=== PATIENT | female | born 1945 | race Caucasian/White ===

== ENCOUNTER 2025-01-06 08:13 | Inpatient (IN) | payer MEDICARE ==
[~2025-01-06] VITALS: Ht 177.8 cm; Wt 94.8 kg
[2025-01-06] VITALS (7 sets, daily range): BP systolic 108–124; BP diastolic 37–87; PULSE 75–82; RESP 18–28; TEMP 97.5–98.8; O2SAT 95–98
[2025-01-06] MEDS: ALBUTEROL/IPRATROPIUM 3 ML NEB NEB ONE (08:59)
[2025-01-06 09:15] LABS: BASOPHILS % 0.3 % (0.0-1.0); EOSINOPHILS % 0.1 % (0.0-6.0); HEMATOCRIT 38.2 % (34.2-44.1); HEMOGLOBIN 11.9 g/dL (12.0-16.0); LYMPHOCYTES # (AUTO) 1.2 (1.0-3.2); LYMPHOCYTES % 12.9 % (18.0-39.1); MEAN CORPUSCULAR HEMOGLOBIN 25.4 pg (28-32); MEAN CORPUSCULAR HGB CONC 31.2 g/dL (31-35); MEAN CORPUSCULAR VOLUME 81.4 fL (81-99); MONOCYTES # (AUTO) 0.7 (0.2-0.8); NEUTROPHILS # (AUTO) 7.4 (2.1-6.9); NEUTROPHILS % 79.2 % (38.7-80.0); PLATELET COUNT 176 x10e3/uL (140-360); RED BLOOD COUNT 4.69 x10e6/uL (3.6-5.1); RED CELL DISTRIBUTION WIDTH 14.8 % (11.7-14.4); WHITE BLOOD COUNT 9.33 x10e3/uL (4.8-10.8)
[2025-01-06] MEDS: ACETAMINOPHEN 1000 MG/100 ML IV STA (09:15)
[2025-01-06] MEDS: SODIUM CHLORIDE 0.9% 1000ML 1,000 ML IV STA (09:15)
[2025-01-06] MEDS: METHYLPREDNISOLONE SOD SUCC 125 MG/2ML VIAL IV STA (09:15)
[2025-01-06 09:33] LABS: CORONAVIRUS COVID-19 AG NEGATIVE (NEGATIVE); INFLUENZA A AG POSITIVE (NEGATIVE); INFLUENZA B AG NEGATIVE (NEGATIVE)
[2025-01-06 09:51] LABS: B-TYPE NATRIURETIC PEPTIDE2 144.3 pg/mL (0-100)
[2025-01-06 09:55] LABS: INR 0.96; PROTHROMBIN TIME 13.4 seconds (11.9-14.5)
[2025-01-06 10:07] LABS: ALBUMIN 3.8 g/dL (3.5-5.0); ALBUMIN/GLOBULIN RATIO 0.9 (0.8-2.0); ANION GAP 18.5 mmol/L (8-16); BILIRUBIN,TOTAL 0.4 mg/dL (0.2-1.2); CALCIUM 10.1 mg/dL (8.4-10.2); CREATININE, SERUM 1.61 mg/dL (0.57-1.11); MAGNESIUM 1.6 MG/DL (1.3-2.1); POTASSIUM 4.5 mmol/L (3.5-5.1)
[2025-01-06 10:12] LABS: PARTIAL THROMBOPLASTIN TIME 23.1 seconds (23.8-35.5); TROPONIN I 0.018 ng/mL (0-0.300)
[2025-01-06] MEDS ORDERED: OSELTAMIVIR PHOSPHATE 75 MG CAP PO SCH (10:15)
[2025-01-06] MEDS: SODIUM CHLORIDE 0.9% 500ML 500 ML IV ONE (10:35)
[2025-01-06 11:12] LABS: CLARITY,URINE HAZY (CLEAR); COLOR,URINE YELLOW (YELLOW)
[2025-01-06 11:13] LABS: BACTERIA,URINE FEW /HPF; BILIRUBIN,URINE NEGATIVE (NEGATIVE); EPITHELIAL CELLS,URINE FEW /LPF; GLUCOSE, URINE NEGATIVE (NEGATIVE); KETONES,URINE TRACE (NEGATIVE); LEUKOCYTE ESTERASE ,URINE SMALL (NEGATIVE); MUCUS,URINE FEW; NITRITE,URINE NEGATIVE (NEGATIVE); PH,URINE 5.5 (5 - 7); PROTEIN,URINE DIPSTICK 2+ (NEGATIVE); RBC,URINE 21-50 /HPF (0-5); URINE UROBILINOGEN 0.2 mg/dL (0.2 - 1); WBC,URINE (MAN) >50 /HPF (0-5)
[2025-01-06] MEDS ORDERED: LEVALBUTEROL HCL SOLN NEBU 0.63 MG/3 ML NEB INH PRN (12:15)
[2025-01-06] MEDS ORDERED: GABAPENTIN600 MG PO (13:58)
[2025-01-06] MEDS ORDERED: CEFPODOXIME PR200 MG PO (13:58)
[2025-01-06] MEDS ORDERED: LEVOTHYROXINE75 MCG PO (13:58)
[2025-01-06] MEDS ORDERED: ATORVASTATIN CA10 MG PO (13:58)
[2025-01-06] MEDS ORDERED: LISINOPRIL2.5 MG PO (13:58)
[2025-01-06] MEDS ORDERED: DULOXETINE HCL20 MG PO (13:58)
[2025-01-06] MEDS ORDERED: TAMOXIFEN CITRA20 MG PO (13:58)
[2025-01-06] MEDS ORDERED: MELOXICAM15 MG PO (13:58)
[2025-01-06] MEDS ORDERED: CRANBERRY250 MG PO (14:04)
[2025-01-06] MEDS ORDERED: NEXIUM 24HR20 MG PO (14:04)
[2025-01-06] MEDS ORDERED: VITAMIN C500 MG PO (14:06)
[2025-01-06] MEDS ORDERED: SYMBICORT 80-10.2 GM INH (14:42)
[2025-01-06] MEDS: SODIUM CHLORIDE 0.9% 1000ML 1,000 ML IV SCH (15:07)
[2025-01-06] MEDS ORDERED: ONDANSETRON HCL 4 MG ORAL DISINTEGRATING TAB PO PRN (16:15)
[2025-01-06] MEDS ORDERED: MELATONIN 5 MG TABLET PO PRN (16:15)
[2025-01-06] MEDS ORDERED: FAMOTIDINE 20 MG TAB PO PRN ×2 (16:15)
[2025-01-06] MEDS: ALBUTEROL/IPRATROPIUM 3 ML NEB NEB SCH (19:35)
[2025-01-06] MEDS: OSELTAMIVIR PHOSPHATE 75 MG CAP PO ONE (20:38)
[2025-01-06] MEDS: ONDANSETRON HCL INJ 2MG/ML 2ML 2 MG/ML VIAL IV PRN (20:39)
[2025-01-07] VITALS (10 sets, daily range): BP systolic 103–117; BP diastolic 50–60; PULSE 74–92; RESP 16–22; TEMP 97.4–98.3; O2SAT 93–100
[2025-01-07] MEDS: LEVOTHYROXINE SODIUM 75 MCG TAB PO SCH (05:49)
[2025-01-07 06:26] LABS: BASOPHILS % 0.2 % (0.0-1.0); HEMOGLOBIN 9.7 g/dL (12.0-16.0); LYMPHOCYTES # (AUTO) 1.4 (1.0-3.2); LYMPHOCYTES % 23.9 % (18.0-39.1); MEAN CORPUSCULAR HEMOGLOBIN 25.2 pg (28-32); MEAN CORPUSCULAR HGB CONC 30.3 g/dL (31-35); MEAN CORPUSCULAR VOLUME 83.1 fL (81-99); MONOCYTES # (AUTO) 0.6 (0.2-0.8); MONOCYTES % 9.6 % (4.4-11.3); PLATELET COUNT 130 x10e3/uL (140-360); RED BLOOD COUNT 3.85 x10e6/uL (3.6-5.1); RED CELL DISTRIBUTION WIDTH 14.6 % (11.7-14.4); WHITE BLOOD COUNT 6.03 x10e3/uL (4.8-10.8)
[2025-01-07 07:01] LABS: ALBUMIN 2.8 g/dL (3.5-5.0); ALBUMIN/GLOBULIN RATIO 1.1 (0.8-2.0); ANION GAP 13.7 mmol/L (8-16); BILIRUBIN,TOTAL 0.2 mg/dL (0.2-1.2); CALCIUM 8.3 mg/dL (8.4-10.2); CHOL/HDL RATIO 2.6 (3.0-3.6); CREATININE, SERUM 1.15 mg/dL (0.57-1.11); POTASSIUM 3.7 mmol/L (3.5-5.1); TOTAL PROTEIN 5.4 g/dL (6.5-8.1)
[2025-01-07 07:08] LABS: TROPONIN I 0.005 ng/mL (0-0.300)
[2025-01-07] MEDS ORDERED: OSELTAMIVIR PHOSPHATE 75 MG CAP PO SCH (09:00)
[2025-01-07] MEDS: OSELTAMIVIR PHOSPHATE 30 MG CAPSULE PO SCH (09:11)
[2025-01-07] MEDS: SODIUM CHLORIDE 0.9% 1000ML 1,000 ML IV SCH (11:26)
[2025-01-07] MEDS ORDERED: PREDNISONE50 MG PO (12:52)
[2025-01-07] MEDS ORDERED: AZITHROMYCIN250 MG PO (12:52)
[2025-01-07] MEDS ORDERED: TAMIFLU6 MG/1 ML PO (12:54)
[2025-01-07] MEDS: ACETAMINOPHEN 325 MG TAB PO PRN (15:10)
[2025-01-07] MEDS: PROMETHAZINE 12.5MG/ NACL 0.9% 12.5 MG/50 ML BAG IV ONE (18:11)
[2025-01-07] MEDS: LISINOPRIL 2.5 MG TAB PO SCH (18:30)
[2025-01-07] MEDS: METHYLPREDNISOLONE SOD SUCC 125 MG/2ML VIAL IV SCH (21:13)
[2025-01-07] MEDS: BENZONATATE 100 MG CAP PO SCH (23:47)
[2025-01-08] VITALS (9 sets, daily range): BP systolic 105–132; BP diastolic 55–89; PULSE 71–86; RESP 19–22; TEMP 97.3–98.3; O2SAT 94–98
[2025-01-08 06:29] LABS: BASOPHILS % 0.2 % (0.0-1.0); HEMOGLOBIN 10.2 g/dL (12.0-16.0); LYMPHOCYTES # (AUTO) 0.7 (1.0-3.2); LYMPHOCYTES % 10.9 % (18.0-39.1); MEAN CORPUSCULAR HEMOGLOBIN 25.6 pg (28-32); MEAN CORPUSCULAR VOLUME 85.4 fL (81-99); MONOCYTES # (AUTO) 0.2 (0.2-0.8); MONOCYTES % 2.7 % (4.4-11.3); NEUTROPHILS # (AUTO) 5.1 (2.1-6.9); NEUTROPHILS % 85.7 % (38.7-80.0); PLATELET COUNT 133 x10e3/uL (140-360); RED BLOOD COUNT 3.98 x10e6/uL (3.6-5.1); RED CELL DISTRIBUTION WIDTH 14.5 % (11.7-14.4); WHITE BLOOD COUNT 5.95 x10e3/uL (4.8-10.8)
[2025-01-08 07:04] LABS: ALBUMIN 2.8 g/dL (3.5-5.0); ALBUMIN/GLOBULIN RATIO 1.1 (0.8-2.0); ANION GAP 13.1 mmol/L (8-16); BILIRUBIN,TOTAL 0.2 mg/dL (0.2-1.2); CALCIUM 8.3 mg/dL (8.4-10.2); CREATININE, SERUM 1.2 mg/dL (0.57-1.11); MAGNESIUM 1.8 MG/DL (1.3-2.1); TOTAL PROTEIN 5.4 g/dL (6.5-8.1)
[2025-01-08 07:19] LABS: POTASSIUM 5.1 mmol/L (3.5-5.1)
[2025-01-08 07:30] LABS: TROPONIN I 0.003 ng/mL (0-0.300)
[2025-01-08] MEDS ORDERED: BENZONATATE100 MG PO (08:27)
== END 2025-01-08 16:43 | disposition home or self-care (01) | DRG 872 ==
LOC: ER 08:25 → ERHOLD 11:18 → MED/SURG3 13:28
PROVIDERS: ADMIT Family Medicine Adult Medicine; ATTEND Family Medicine Adult Medicine
PROC: 3E0333Z Introduction of Anti-inflammatory into Peripheral Vein, Percutaneous Approach (ICD-10-PCS; principal; 2025-01-06)
DX: A41.89 Other specified sepsis (principal); M62.82 Rhabdomyolysis; I50.32 Chronic diastolic (congestive) heart failure; N39.0 Urinary tract infection, site not specified; J44.1 Chronic obstructive pulmonary disease with (acute) exacerbation; R65.20 Severe sepsis without septic shock; S09.90XA Unspecified injury of head, initial encounter; J10.89 Influenza due to other identified influenza virus with other manifestations; E03.9 Hypothyroidism, unspecified; N18.30 Chronic kidney disease, stage 3 unspecified; D63.1 Anemia in chronic kidney disease; R06.03 Acute respiratory distress; M54.31 Sciatica, right side; Z11.52 Encounter for screening for COVID-19; W18.30XA Fall on same level, unspecified, initial encounter; Y92.002 Bathroom of unspecified non-institutional (private) residence as the place of occurrence of the external cause; Z79.890 Hormone replacement therapy; Z85.3 Personal history of malignant neoplasm of breast; Z88.0 Allergy status to penicillin; Z88.1 Allergy status to other antibiotic agents; Z88.2 Allergy status to sulfonamides; Z88.5 Allergy status to narcotic agent; Z87.891 Personal history of nicotine dependence
CPT/HCPCS: 36415; 70450; 71045; 71250; 72125; 72192; 80053; 80061; 81001; 82550; 83605; 83735; 83880; 84484; 85025; 85610; 85730; 87040; 87086; 93005; 93306; 94640; 94799; 99285; J0696; J2405; J2550; J2919; J7030; J7040; J7050